=== PATIENT | female | born 1990 | race African-American/Black ===

== ENCOUNTER 2023-09-08 16:45 | Observation (INO) | payer OTHER, SELFPAY ==
[2023-09-08] VITALS (9 sets, daily range): BP systolic 65–111; BP diastolic 33–69; PULSE 62–84; RESP 12–24; TEMP 36.7; O2SAT 96–100
--- NOTE | ~2023-09-08 | CT_ITS ---
EXAMINATION: CT abdomen pelvis w con DATE: 09/08/2023 23:34 INDICATION: Lower abdominal pain TECHNIQUE: Computed tomography (CT) of the abdomen and pelvis was performed with 100 mL Omnipaque-350 intravenous contrast. Automated exposure control and iterative reconstruction technique were employe d. The dose-length product was 1227.58 mGy-cm. COMPARISON: None FINDINGS: Lung bases are clear. Heart size is normal. No pericardial or pleural effusion. Liver, gallbladder, s pleen, pancreas, bilateral adrenal glands and left kidney are normal. Subtle geographic regions of de creased parenchymal enhancement in the right kidney suspicious for cris nephritis. Large amount stool scattered throughout the colon which could be seen with constipation. Small bowel and appendix are n ormal. Diffuse bladder wall thickening suspicious for cystitis. Anteverted uterus and right adnexa ar e unremarkable. 2.1 cm likely dominant follicle at the left ovary. No free intraperitoneal gas or flu id. No pathologically enlarged abdominal or pelvic lymphadenopathy. Bones are unremarkable. IMPRESSION: 1. Findings suspicious for cystitis and right pyelonephritis. Correlate with urinalysis. Reviewed, dictated and finalized at location A. IMPRESSION: 1. Findings suspicious for cystitis and right pyelonephritis. Correlate with ur inalysis.
--- NOTE | ~2023-09-08 | US_ITS ---
US pelvic complete w TV Ordering provider: Donald Herrera MD History: . Abnormal Vaginal Discharge . Comparison: None. Technique: Transabdominal and endovaginal ultrasound of the pelvis (Doppler ultrasound interrogation techniques used as needed for this exam.) FINDINGS: CERVIX: Normal. UTERUS: Measures 10.3x 5.2x 5.8 cm in length which is within normal limits and is anteverted. No sarah metrial masses. Echogenic areas seen in the lower segment measuring 2.6 x 5.7 x 0.8 cm. ENDOMETRIUM: Normal in thickness measuring 11 mm. No endometrial masses, cysts or fluid. CUL DE SAC: No free fluid. RIGHT OVARY: Not seen. LEFT OVARY: Normal in size measuring 3.8x 2.4 cm. Normal echotexture. Doppler vascular flow present. Cyst is seen measuring 2.6 x 2.4 x 2.1 cm. Echogenic areas seen inside this cyst which may be a ruptu red follicle. ADNEXA: Normal. No mass. IMPRESSION: Left ovarian cyst with echogenic cystic area which may indicate ruptured follicle. Correlation with p regnancy test is advised. Otherwise, normal pelvic ultrasound. Reviewed, dictated and finalized at location A. IMPRESSION: Left ovarian cyst with echogenic cystic area which may indicate ruptured follic le. Correlation with test is advised. Otherwise, normal pelvic ultras ound.
--- NOTE | 2023-09-08 21:18 | ED.FEMALEGU ---
HPI - Female Genitourinary General Chief complaint: Vaginal Bleeding <Carlos Fuentes PA-C - Last Filed: 09/09/23 01:18> Stated complaint: vaginal discharge/cramping <Carlos Fuentes PA-C - Last Filed: 09/09/23 01:18> Time Seen by Provider: 09/08/23 21:05 <Carlos Fuentes PA-C - Last Filed: 09/09/23 01:18> Source: patient <EUGENE Buckley Last Filed: 09/09/23 01:18> Mode of arrival: ambulatory <EUGENE Buckley Last Filed: 09/09/23 01:18> Limitations: no limitations <Carlos Fuentes PA-C - Last Filed: 09/09/23 01:18> History of Present Illness HPI Narrative: This is a 33-year-old female who presents to the ED for chief complaint of vaginal discharge and lower abdominal cramping this started yesterday. Patient reports clear mucousy discharge as well as black appearing discharge. States that she was seen at this hospital couple of weeks ago and given several antibiotics. States that she has been taking the antibiotics as prescribed and has not really noticed an improvement in discharge symptoms. The abdominal cramping today is new. Denies fevers, chills, urinary symptoms, back pain, nausea,, diarrhea, chest pain. States last normal period was at beginning of August but she does usually have irregular periods. Per chart review patient has not been seen in our system previously. <Carlos Fuentes PA-C - Last Filed: 09/09/23 01:18> Related Data Home medications: Home Medications Medication Instructions Recorded Confirmed metronidazole 500 mg tablet 500 mg PO BID 09/09/23 09/09/23 naproxen 500 mg tablet 500 mg PO BID PRN Back Pain 09/09/23 09/09/23 prazosin 2 mg capsule 2 mg PO BID 09/09/23 09/09/23 risperidone 3 mg tablet 3 mg PO DAILY 09/09/23 09/09/23 sumatriptan succinate 25 mg tablet 25 mg PO DAILY 09/09/23 09/09/23 valacyclovir 500 mg tablet 500 mg PO DAILY 09/09/23 09/09/23 <Carlos Fuentes PA-C - Last Filed: 09/09/23 01:18> Allergies/Adverse reactions: Allergies Allergy/AdvReac Type Severity Reaction Status Date / Time No Known Allergies Allergy Verified 09/08/23 16:46 <EUGENE Buckley Last Filed: 09/09/23 01:18> Review of Systems Review of Systems: All systems as dictated in HPI <Carlos Fuentes PA-C - Last Filed: 09/09/23 01:18> Exam Narrative: GENERAL: Well-appearing, well-nourished, and in no acute distress. HEAD: Normocephalic, atraumatic. EYES: PERRLA and EOMI. ENT: Nares clear, no rhinorrhea or epistaxis. Mucous membranes moist. Oropharynx without tonsillar hypertrophy exudate or other lesions. NECK: Supple. No adenopathy or masses. CHEST: No respiratory distress. Clear to auscultation. No wheezes rales or rhonchi HEART: Regular rate and rhythm. No murmur heard. Normal peripheral pulses. ABDOMEN: Soft, nontender, nondistended, normal active bowel sounds. MSK: Normal range of motion. No edema. SKIN: Warm, dry, no rash. NEURO: Alert and oriented x4. No focal deficits. PSYCH: Normal mood and affect. : Pelvic exam done with female RN fabric worker present; there is copious amounts of purulent discharge from the cervical os. No external lesions noted. <Carlos Fuentes PA-C - Last Filed: 09/09/23 01:18> Course Course Emergency Course: For this patient encounter, I reviewed the PHYSICIAN EXECUTIVE or PA documentation, treatment plan, and medical decision making and I had [id number] time with this patient. I performed all aspects of the MDM as documented. <Silvano Mireles DO - Last Filed: 09/09/23 07:23> Vital Signs Vital signs: Vital Signs Temperature 98.1 F 09/08/23 17:06 Pulse Rate 84 09/08/23 17:06 Respiratory Rate 18 09/08/23 17:06 Blood Pressure 96/69 L 09/08/23 17:06 Pulse Oximetry 100 09/08/23 17:06 Oxygen Delivery Room Air 09/08/23 17:06 Temperature 96.0 F L 09/09/23 04:23 Pulse Rate 71 09/09/23 04:23 Respiratory Rate 14 09/09/23 04:23 Blood Pressure 101/46 L 0
[2023-09-08] MEDS: ONDANSETRON INJ 4 MG/2 ML VIAL IV PUSH (21:31)
[2023-09-08] MEDS: KETOROLAC 30 MG/ML VIAL (*BKC) IV PUSH (21:31)
[2023-09-08 21:43] LABS: Basophils Percent Auto 0.3 % (0.2-1.2); Eosinophils Absolute Auto 0.3 K/mm3 (0-0.3); Eosinophils Percent Auto 2.9 % (0-4.4); Hematocrit 35.8 % (37.0-47.0); Hemoglobin 11.2 g/dL (12.0-15.0); Immature Granulocyte Absolute 0.01 K/mm3 (0.00-0.031); Immature Granulocyte Percent A 0.1 % (0-0.5); Lymphocytes Percent Auto 34.3 % (18.3-44.2); Mean Corpuscular HGB Conc 31.3 g/dl (32-36); Mean Corpuscular Hemoglobin 29.4 pg (26-34); Mean Platelet Volume 9.4 fl (7.4-10.4); Monocytes Absolute Auto 0.8 K/mm3 (0.1-0.6); Monocytes Percent Auto 9.2 % (2.6-8.5); Neutrophils Absolute Auto 4.8 K/mm3 (1.3-6.7); Neutrophils Percent Auto 53.2 % (45.5-73.1); Platelet Count Result 231 k/mm3 (150-375); Red Blood Count 3.81 M/mm3 (4.2-5.4); Red Cell Distribution Width 13.2 % (11.5-14.5); White Blood Count 9.1 K/mm3 (4.5-10.0)
[2023-09-08 21:55] LABS: Partial Thromboplastin Time 28.6 Seconds (22.3-36.8)
[2023-09-08 22:00] LABS: Alanine Aminotransferase 60 U/L (6-35); Albumin Level 3.7 g/dL (3.5-5.1); Alkaline Phosphatase 32 U/L (38-126); Anion Gap 6 mmol/L (4-12); Aspartate Amino Transferase 34 U/L (14-36); Bilirubin,Total 0.4 mg/dL (0.2-1.3); Blood Urea Nitrogen 17 mg/dL (7-17); Calcium 9.1 mg/dL (8.4-10.2); Carbon Dioxide 30 mmol/L (22-30); Chloride 100 mmol/L (98-107); Estimated CRCL calculation 125 ml/min; Estimated Glomerular Filt Rate > 60; Glucose 84 mg/dL (65-110); Potassium 4.5 mmol/L (3.4-5.0); Sodium 136 mmol/L (137-145)
[2023-09-08 22:15] LABS: SPREG INTERNAL CONTROL Positive; Serum Qual hCG Negative
[2023-09-08] MEDS: SODIUM CHLORIDE 0.9% IV 1,000 ML 999 ML IV CONT ×2 (22:53)
[2023-09-08] MEDS: MORPHINE SULFATE (*CRX) 4 MG/ML INJ IV PUSH (22:53)
[2023-09-08 22:59] LABS: BEDSIDEPREGUCG Negative
[2023-09-08 23:02] LABS: Add Urine Microscopic? YES; Appearance Urine Clear (Clear); Bacteria Urine None Seen /hpf; Bilirubin Urine Negative (Negative); Blood Urine Negative (Negative); Color Urine Dark Yellow (Yellow); Glucose Urine UA Negative (Negative); Ketones Urine Trace mg/dL (Negative); Leukocyte Esterase Ur Trace LEU/UL (Negative); Nitrate Urine Negative (Negative); Non Pathogenic Casts 0-2; Protein Urine Negative (Negative); Specific Grav Ur 1.033 (1.001-1.035); Squamous Epithelial Cell Urine None Seen /hpf (Few); WBC Urine 0-5 /hpf (0-3)
[2023-09-08 23:37] LABS: CRP < 0.5 mg/dL (<1.0)
[2023-09-08 23:57] LABS: Trichomonas Vag PCR NOT DETECTED (NOT DETECTE)
[2023-09-09] VITALS (7 sets, daily range): BP systolic 98–124; BP diastolic 46–64; PULSE 48–79; RESP 14–17; TEMP 35.6–36.9; O2SAT 98–100; BMI 39.6
[2023-09-09] MEDS: PIPERACILLN/TAZ 3.375GM/NS50ML 3.375 GM/50 ML BAG IVPB ×5 (00:09→23:57)
[2023-09-09 00:21] LABS: Chlamydia trachomatis NOT DETECTED (NOT DETECTE); Neisseria gonorrhoeae PCR NOT DETECTED (NOT DETECTE)
[2023-09-09] MEDS: DOXYCYCLINE 100 MG/NS 100 ML 100 MG/100 ML BAG IVPB ×3 (00:41→21:28)
[2023-09-09 00:42] LABS: Erythrocyte Sedimentation Rate 47 mm/hr (0-20)
--- NOTE | 2023-09-09 01:52 | ADMGEN ---
This patient, Leanne Borrego, was admitted to 3 [facility] Surg Room 327-01. Patient/family oriented to hospital policies and general routines including ID bracelet, bed and alarms, visiting hours, pain management, procedures, bathroom and other care routines, personal items, smoking policy, room service/diet, and visiting hours. Information on how to activate the Rapid Response Team has been discussed. Patient/Family are encouraged to report perceived risks to care and to ask questions if they do not understand what they are told or what they should do.
[2023-09-09] MEDS: LACTATED RINGERS 1,000 ML 125 ML IV CONT ×2 (03:06→16:40)
[2023-09-09 08:45] LABS: Alanine Aminotransferase 51 U/L (6-35); Albumin Level 3.4 g/dL (3.5-5.1); Alkaline Phosphatase 26 U/L (38-126); Anion Gap 5 mmol/L (4-12); Aspartate Amino Transferase 29 U/L (14-36); Bilirubin,Total 0.4 mg/dL (0.2-1.3); Blood Urea Nitrogen 16 mg/dL (7-17); Calcium 8.6 mg/dL (8.4-10.2); Carbon Dioxide 29 mmol/L (22-30); Chloride 102 mmol/L (98-107); Estimated CRCL calculation 109 ml/min; Estimated Glomerular Filt Rate > 60; Glucose 76 mg/dL (65-110); Potassium 4.3 mmol/L (3.4-5.0); Sodium 136 mmol/L (137-145)
[2023-09-09] MEDS: KETOROLAC 30 MG/ML VIAL (*BKC) IV PUSH ×2 (08:48→14:41)
[2023-09-09 08:49] LABS: Basophils Percent Auto 0.2 % (0.2-1.2); Eosinophils Absolute Auto 0.3 K/mm3 (0-0.3); Eosinophils Percent Auto 3.1 % (0-4.4); Hematocrit 36.3 % (37.0-47.0); Hemoglobin 10.9 g/dL (12.0-15.0); Immature Granulocyte Absolute 0.01 K/mm3 (0.00-0.031); Immature Granulocyte Percent A 0.1 % (0-0.5); Lymphocytes Absolute Auto 2.41 K/mm3 (0.9-3.2); Lymphocytes Percent Auto 28.5 % (18.3-44.2); Mean Corpuscular Hemoglobin 29.2 pg (26-34); Mean Corpuscular Volume 97.3 fl (80-100); Mean Platelet Volume 9.5 fl (7.4-10.4); Monocytes Absolute Auto 0.9 K/mm3 (0.1-0.6); Monocytes Percent Auto 11.1 % (2.6-8.5); Neutrophils Absolute Auto 4.8 K/mm3 (1.3-6.7); Platelet Count Result 226 k/mm3 (150-375); Red Blood Count 3.73 M/mm3 (4.2-5.4); Red Cell Distribution Width 13.3 % (11.5-14.5); White Blood Count 8.5 K/mm3 (4.5-10.0)
[2023-09-09] MEDS: MAGNESIUM HYDROXIDE SUSP 30 ML UDC PO ×3 (09:57→21:28)
[2023-09-10] VITALS: BP 121/52; PULSE 92; RESP 15; TEMP 36.6; O2SAT 100
[2023-09-10] MEDS: LACTATED RINGERS 1,000 ML 125 ML IV CONT (02:28)
[2023-09-10 04:00] VITALS: BP 105/63; PULSE 79; RESP 15; TEMP 36.2; O2SAT 100
[2023-09-10] MEDS: PIPERACILLN/TAZ 3.375GM/NS50ML 3.375 GM/50 ML BAG IVPB (05:55)
[2023-09-10 06:26] LABS: Basophils Percent Auto 0.4 % (0.2-1.2); Eosinophils Absolute Auto 0.2 K/mm3 (0-0.3); Hematocrit 34.8 % (37.0-47.0); Hemoglobin 10.9 g/dL (12.0-15.0); Immature Granulocyte Absolute 0.01 K/mm3 (0.00-0.031); Immature Granulocyte Percent A 0.1 % (0-0.5); Lymphocytes Absolute Auto 1.22 K/mm3 (0.9-3.2); Lymphocytes Percent Auto 13.3 % (18.3-44.2); Mean Corpuscular HGB Conc 31.3 g/dl (32-36); Mean Corpuscular Volume 95.9 fl (80-100); Mean Platelet Volume 9.3 fl (7.4-10.4); Monocytes Absolute Auto 1.1 K/mm3 (0.1-0.6); Neutrophils Absolute Auto 6.6 K/mm3 (1.3-6.7); Neutrophils Percent Auto 72.2 % (45.5-73.1); Platelet Count Result 205 k/mm3 (150-375); Red Blood Count 3.63 M/mm3 (4.2-5.4); White Blood Count 9.2 K/mm3 (4.5-10.0)
[2023-09-10 07:02] LABS: Alanine Aminotransferase 51 U/L (6-35); Albumin Level 3.6 g/dL (3.5-5.1); Alkaline Phosphatase 27 U/L (38-126); Anion Gap 7 mmol/L (4-12); Aspartate Amino Transferase 30 U/L (14-36); Bilirubin,Total 0.5 mg/dL (0.2-1.3); Blood Urea Nitrogen 12 mg/dL (7-17); Calcium 8.7 mg/dL (8.4-10.2); Carbon Dioxide 28 mmol/L (22-30); Chloride 100 mmol/L (98-107); Estimated CRCL calculation 109 ml/min; Estimated Glomerular Filt Rate > 60; Glucose 88 mg/dL (65-110); Potassium 4.4 mmol/L (3.4-5.0); Sodium 135 mmol/L (137-145)
[2023-09-10] MEDS: DOXYCYCLINE 100 MG/NS 100 ML 100 MG/100 ML BAG IVPB (07:57)
--- NOTE | 2023-09-10 08:24 | PM.GYNPNOP ---
ASSOCIATE DIRECTOR CAREER SERVICES - A/P Assessment and plan (1) Acute pelvic inflammatory disease (PID): Code(s): N73.0 - Acute parametritis and pelvic cellulitis Status: Acute Assessment and Plan: 33-year-old female with possible PID was admitted for IV antibiotics. She has been afebrile, tolerating p.o., passing flatus throughout her stay. She has modest pain in appears well today and is ready for discharge. She will be discharged to home. She will follow up in 1 week. She will be discharged with antibiotics. Time Spent With Patient Time: Total time spent is greater than 50% in coordination of care (as documented) at patient's floor/unit and/or counseling patient: Time with patient: less than 15 minutes ASSOCIATE DIRECTOR CAREER SERVICES- PN:Subj Post-Op Subjective Date/time seen: 09/10/23 08:24 Interval history: 33-year-old female with possible PID was admitted for IV antibiotics. She has been afebrile, tolerating p.o., passing flatus throughout her stay. She has modest pain in appears well today and is ready for discharge. She will be discharged to home. She will follow up in 1 week. She will be discharged with antibiotics. ASSOCIATE DIRECTOR CAREER SERVICES - PN: Obj Data Vital Signs Vital Signs: Vital Signs - 24 hr 09/09/23 08:40 09/09/23 08:55 09/09/23 12:11 Temperature 96.9 F L 97.0 F L Pulse Rate 79 78 Respiratory Rate 16 16 Blood Pressure 99/47 L 100/53 L Pulse Oximetry 100 100 Oxygen Delivery Room Air 09/09/23 17:40 09/09/23 20:00 09/10/23 00:00 Temperature 96.8 F L 98.5 F 97.9 F Pulse Rate 77 48 L 92 Respiratory Rate 17 16 15 Blood Pressure 98/51 L 124/63 121/52 L Pulse Oximetry 100 98 100 Oxygen Delivery 09/10/23 04:00 Temperature 97.1 F L Pulse Rate 79 Respiratory Rate 15 Blood Pressure 105/63 Pulse Oximetry 100 Oxygen Delivery Intake/Output Intake/Output: Intake & Output 09/07/23 09/08/23 09/09/23 09/10/23 23:59 23:59 23:59 23:59 Intake Total 0 2049 Balance 6199 2049 Meds/Results Medications: Active Medications Generic Name Dose Route Start Last Admin Trade Name Freq PRN Reason Stop Dose Admin Lactated Ringer's 1,000 mls @ 125 mls/hr 09/09/23 00:40 09/10/23 02:28 Lr - Lactated Ringers Iv IV CONT 125 mls/hr .Q8H FAINA Administration Piperacillin/Tazobactam/Dextrose 3.375 gm in 50 mls @ 100 mls/hr 09/09/23 06:00 09/10/23 05:55 Zosyn 3.375 Gm/Ns 50 Ml IVPB 100 mls/hr Q6HR FAINA Administration Doxycycline Hyclate 100 mg in 100 mls @ 100 mls/hr 09/09/23 09:00 09/10/23 07:57 Vibramycin 100 Mg/Ns 100 Ml IVPB 100 mls/hr Q12HR FAINA Administration Ketorolac Tromethamine 30 mg 09/09/23 00:36 09/09/23 14:41 Ketorolac 30 Mg/Ml Vial (*Bkc) IV PUSH 09/14/23 00:35 30 mg Q6H PRN Administration Pain Rated 4-6 Magnesium Hydroxide 30 ml 09/09/23 09:40 09/10/23 05:55 Magnesium Hydroxide Susp 30 Ml Udc PO Not Given Q8HR FAINA Morphine Sulfate 4 mg 09/09/23 00:36 Morphine Sulfate (*Crx) 4 Mg/Ml Inj IV PUSH Q4H PRN Pain Rated 7-10 Ondansetron HCl 4 mg 09/09/23 00:36 Ondansetron Inj 4 Mg/2 Ml Vial IV PUSH Q4H PRN Nausea Radiology Results: ITS Impressions Abdomen/Pelvis CT 09/08/23 23:35 IMPRESSION: 1. Findings suspicious for cystitis and right pyelonephritis. Correlate with urinalysis. Pelvic/Transvag US 09/09/23 15:45 IMPRESSION: Left ovarian cyst with echogenic cystic area which may indicate ruptured follicle. Correlation with test is advised. Otherwise, normal pelvic ultrasound. Labs 09/10/23 06:10 09/10/23 06:10 Labs: Laboratory Results - last 24 hr 09/09/23 09/10/23 08:20 06:10 WBC 8.5 9.2 RBC 3.73 L 3.63 L Hgb 10.9 L 10.9 L Hct 36.3 L 34.8 L MCV 97.3 95.9 MCH 29.2 30.0 MCHC 30.0 L 31.3 L RDW 13.3 13.0 Plt Count 226 205 MPV 9.5 9.3 Immature Gran % (Auto) 0.1 0.1 Neut % (Auto) 57.0 72.2 Lymph % (Auto) 28.5 13.3 L Carbon % (Auto) 11.1 H 12
--- NOTE | 2023-09-10 08:28 | PM.DS ---
DS: Admitting Diagnosis Discharge Date September 10, 2023 Admitting Diagnosis pelvic inflammatory disease DS: Discharge Diagnosis Discharge Diagnosis (1) Acute pelvic inflammatory disease (PID): Code(s): N73.0 - Acute parametritis and pelvic cellulitis Status: Acute DS: Summary Hospital Course Hospital Course: 33-year-old female with possible PID was admitted for IV antibiotics. She has been afebrile, tolerating p.o., passing flatus throughout her stay. She has modest pain in appears well today and is ready for discharge. She will be discharged to home. She will follow up in 1 week. She will be discharged with antibiotics. Time Spent with Patient Time attestation: Total time spent providing and/or coordinating discharge services: DS: Data Data Completed and Pending Labs on day of discharge: Labs from last 24 hours 09/10/23 09/09/23 06:10 08:20 WBC 9.2 8.5 RBC 3.63 L 3.73 L Hgb 10.9 L 10.9 L Hct 34.8 L 36.3 L MCV 95.9 97.3 MCH 30.0 29.2 MCHC 31.3 L 30.0 L RDW 13.0 13.3 Plt Count 205 226 MPV 9.3 9.5 Immature Gran % (Auto) 0.1 0.1 Neut % (Auto) 72.2 57.0 Lymph % (Auto) 13.3 L 28.5 [place] % (Auto) 12.0 H 11.1 H Eos % (Auto) 2.0 3.1 Baso % (Auto) 0.4 0.2 Lymph # (Auto) 1.22 2.41 [place]idan # (Auto) 1.1 H 0.9 H Eos # (Auto) 0.2 0.3 Baso # (Auto) 0.0 0.0 Abs Immat Gran (auto) 0.01 0.01 Absolute Neuts (auto) 6.6 4.8 Absolute Nucleated RBC 0.000 0.000 Nucleated RBC % 0.0 0.0 Sodium 135 L 136 L Potassium 4.4 4.3 Chloride 100 102 Carbon Dioxide 28 29 Anion Gap 7 5 BUN 12 16 Creatinine 0.70 0.70 Estim Creat Clear Calc 109 109 Estimated GFR > 60 > 60 Glucose 88 76 Calcium 8.7 8.6 Total Bilirubin 0.5 0.4 AST 30 29 ALT 51 H 51 H Alkaline Phosphatase 27 L 26 L Total Protein 6.0 L 6.0 L Albumin 3.6 3.4 L Discharge Plan Discharge Discharging Clinician: Donald Herrera Patient Disposition: Home, Self-Care Activity: pelvic rest Diet: regular Patient Instructions: Antibiotic Form Stand Alone Forms: General Discharge Information Follow-up/Referrals: Donald Herrera MD [Physician] - Discharge Medications: New doxycycline hyclate 100 mg capsule 100 mg PO BID Qty: 30 0RF metronidazole 500 mg tablet 500 mg PO Q12H Qty: 30 0RF Continued sumatriptan succinate 25 mg tablet 25 mg PO DAILY metronidazole 500 mg tablet 500 mg PO BID valacyclovir 500 mg tablet 500 mg PO DAILY risperidone 3 mg tablet 3 mg PO DAILY prazosin 2 mg capsule 2 mg PO BID naproxen 500 mg tablet 500 mg PO BID PRN (Reason: Back Pain) Date of admission: 09/09/23 00:37 Primary Care Provider: PHYSICIAN NOT ON STAFF,NONSTAFF Admitting Provider: Donald Herrera Attending physician on admission: Donald Herrera Condition: Stable
[2023-09-10 09:00] VITALS: BP 127/73; PULSE 90; RESP 16; TEMP 36.6; O2SAT 93
== END 2023-09-10 09:45 | disposition other institution (70) ==
LOC: ANHED 09-09 00:46 → ANH3MEDSUR 09-09 01:26
PROVIDERS: Admitting Provider Obstetrics & Gynecology; Emergency Provider Physician Assistant; Visit Provider Obstetrics & Gynecology
DX: N73.0 Acute parametritis and pelvic cellulitis (principal)
CPT/HCPCS: 36415; 74177; 76830; 76856; 80053; 81001; 81025; 84703; 85025; 85610; 85652; 85730; 86140; 86850; 86900; 86901; 87491; 87591; 87661; 96361; 96365; 96366; 96367; 96374; 96375; 96376; 99285; A9270; G0378; G0379; J1885; J2270; J2405; J2543; J7030; J7120; Q9967